=== PATIENT | female | born 1990 | race Caucasian/White ===

== ENCOUNTER 2017-04-27 21:06 | Emergency (ER) | payer SELFPAY ==
[~2017-04-27] VITALS: Ht 167.6 cm; Wt 127.0 kg
[2017-04-27] MEDS ORDERED: PNV#1COM11 PO (21:45)
[2017-04-27 22:45] LABS: BLOOD UREA NITROGEN 20 mg/dL (7-18)
[2017-04-28 01:15] VITALS: BP 141/67
== END 2017-04-28 01:17 | disposition home or self-care (01) ==
LOC: ED 22:14
DX: O20.0 Threatened abortion (principal); K50.90 Crohn's disease, unspecified, without complications; Z3A.01 Less than 8 weeks gestation of pregnancy
CPT/HCPCS: 36415; 76801; 80048; 81001; 82040; 84702; 85025; 87086

== ENCOUNTER 2017-04-30 12:30 | Emergency (ER) | payer SELFPAY ==
[~2017-04-30] VITALS: Ht 167.6 cm; Wt 125.2 kg
[~2017-04-30 12:30] MED LIST: PNV#1COM11 PO
[2017-04-30 12:54] VITALS: BP 138/86
== END 2017-04-30 14:33 | disposition home or self-care (01) ==
LOC: ED 13:27
DX: O03.9 Complete or unspecified spontaneous abortion without complication (principal)
CPT/HCPCS: 36415; 84702; 99283